=== PATIENT | female | born 1985 | race Caucasian/White ===

== ENCOUNTER 2020-03-28 13:39 | Observation (INO) | payer BC ==
[2020-03-28] MEDS ORDERED: RINGERS SOLUTION,LACTATED 1,000 ML IV ONE ×2 (14:11→17:49)
[2020-03-28 14:25] LABS: APPEARANCE,URINE CLEAR; BILIRUBIN,URINE NEGATIVE (NEGATIVE); COLOR,URINE YELLOW; GLUCOSE, URINE NEGATIVE (NEGATIVE); KETONES,URINE 20 mg/dL (NEGATIVE); LEUKOCYTE ESTERASE,URINE NEGATIVE (NEGATIVE); NITRITE,URINE NEGATIVE (NEGATIVE); PROTEIN,URINE NEGATIVE (NEGATIVE); URINE SPECIFIC GRAVITY 1.006; UROBILINOGEN,URINE NEGATIVE mg/dL (<2.0)
[2020-03-28 14:43] LABS: URINE AMPHETAMINES SCREEN NEGATIVE; URINE BARBITURATES SCREEN NEGATIVE; URINE BENZODIAZEPINES SCREEN NEGATIVE; URINE COCAINE SCREEN NEGATIVE; URINE MARIJUANA (THC) SCREEN NEGATIVE; URINE METHADONE SCREEN NEGATIVE; URINE PHENCYCLIDINE SCREEN NEGATIVE
[2020-03-28] MEDS ORDERED: TERBUTALINE SULFATE INJ/PF 1 MG/1 ML SDV SUBCUT ONE (14:53)
[2020-03-28 14:55] LABS: BACTERIA (WET MOUNT) 3+ BACTERIA SEEN; EPITHELIALS (WET MOUNT) 3+ EPITHELIALS SEEN; T.VAGINALIS (WET MOUNT) NO TRICHOMONAS SEEN; WBCS (WET MOUNT) 1+ WBCS SEEN; YEAST (WET MOUNT) NO YEAST SEEN
[2020-03-28] MEDS ORDERED: TERBUTALINE SULFATE INJ/PF 1 MG/1 ML SDV ONE (14:56)
--- NOTE | 2020-03-28 15:51 | RADIOLOGY REPORT (SQ) ---
EXAM DESCRIPTION: U/S OB LIMITED IMAGES COMPLETED DATE/TIME: 03/28/2020 2:57 pm REASON FOR STUDY: cervical length COMPARISON: None. TECHNIQUE: Limited transabdominal grayscale ultrasound for evaluation of specific requested obstetri joseph parameters. LIMITATIONS: None. FINDINGS: TWIN A: LVP: 5.4 x 9.2 cm. FHR: 128 beats per minute. PRESENTATION: Vertex. PLACENTA: Anterior. ANATOMY: Not assessed OTHER: No other findings. TWIN B: LVP: 4.4 x 4.6 cm. FHR: 141 beats per minute. PRESENTATION: Transverse. PLACENTA: Anterior ANATOMY: Not assessed OTHER: No other findings. CERVICAL LENGTH: 4.4 cm. IMPRESSION: LIMITED OBSTETRICAL ULTRASOUND WITH MEASURED PARAMETERS DELINEATED ABOVE. Trimester of : Third trimester - 28 weeks to delivery. TECHNICAL DOCUMENTATION: JOB ID: [id number] 2010 [employer]- All Rights Reserved Reading location - IP/workstation name: [email or web address]
[2020-03-28 16:20] LABS: CHLAM PCR NOT DETECTED (NOT DETECT)
[2020-03-28] MEDS ORDERED: NIFEDIPINE 10 MG CAPSULE PO ONE (17:19)
[2020-03-28] MEDS ORDERED: NIFEDIPINE 10 MG CAPSULE ONE ×4 (17:25→23:57)
[2020-03-28] MEDS ORDERED: RINGERS SOLUTION,LACTATED 1,000 ML IV PRN (17:49)
[2020-03-28] MEDS ORDERED: BETAMET ACET/BETAMET NA INJ 6 MG/1 ML IM ONE (17:52)
[2020-03-28] MEDS ORDERED: HYDROXYZINE PAMOATE 50 MG CAPSULE PO ONE (17:52)
[2020-03-28] MEDS ORDERED: HYDROXYZINE PAMOATE 50 MG CAPSULE ONE (18:07)
[2020-03-28] MEDS ORDERED: BETAMET ACET/BETAMET NA INJ 6 MG/1 ML ONE (18:09)
[2020-03-28] MEDS ORDERED: IBUPROFEN 800 MG TABLET ONE (18:44)
--- NOTE | 2020-03-28 19:05 | Admission Physical ---
Datetime Report Generated by CPN: 03/28/2020 19:05 CURRENT ADMISSION Chief Complaint: Uterine Contractions Indication for Induction: Not Applicable Admit Impression : , Intrauterine ; Intact Membranes; Observation/Evaluation Admit Plan: Admit to Unit; Observation/Evaluation ALLERGIES Medication Allergies: No Medication Allergies: aspirin (12/14/2013) Latex: No Latex Allergies OBSTETRICAL HISTORY EDC: 06/05/2020 00:00 : 6 Para: 5 PHYSICAL EXAM General: Normal HEENT: Normal Neurologic: Normal Thyroid: Deferred Heart: Normal Lungs: Normal Breast: Deferred Back: Normal Abdomen: Normal Genitourinary Exam: Normal Extremities: Normal DTRs: Normal Pelvic Type: Adequate Vital Signs: Reviewed VAGINAL EXAM Dilatation: 0 Effacement: 0 Station: ji FETUS A EGA: 30.1 Monitoring: External US FHR- Baseline: 140 Variability: Moderate 6-25bpm Accelerations: 15X15 Decelerations: None FHR Category: Category I Presentation: Transverse Admit Comment: 34yo ( x 3, C/S for twins) at 30+1ega presents for uterine ctx q 2 minutes. Terb given with little relief. LLOYD twin A polyhydramnios - patient is aware of this and has appt on with MFM to f/u on this. GDM - just started checking sugars. Reviewed concern that despite terb she is still having regular contractions that are palpating mild to moderate. She does not appear to be in labor but is having regular ctx - cervix closed and cervical length is 4.4cm. Procardia and vistaril loading given and will give procardia Q 4-6 hours to maintain quiet uterus. D/w Dr. oRdarte - will delay on BMZ since cvx closed - will give BMZ if needed for cervical change and will begin Mag Sulfate at that time if it should occur. For now will given Motrin 800mg po Q 8 hours for 48 hours per MFM. Admit and monitor overnight - observation. FETUS B Monitoring: External US Variability: Moderate 6-25bpm Accelerations: 15X15 Decelerations: None FHR Category: Category I Presentation: Transverse INFORMED CONSENT Informed Consent Obtained: Section Delivery; Risks, Benefits and Alternatives Discussed Signature: with User ID: [email or web address]
--- NOTE | 2020-03-28 20:46 | Non Stress Test Report ---
Non Stress Test Datetime Report Generated by CPN: 03/28/2020 20:45 DEMOGRAPHIC EGA NST: 30.1 VITAL SIGNS Temperature - NST: 98.5 Pulse - NST: 116 RESP - NST: 17 NBPSYS NST: 99 NBPDIA NST: 54 MONITORING Monitor Explained: Monitor Explained; Test Explained; Patient Verbalized Understanding Time on Monitor: 03/28/2020 19:40 Time off Monitor: 03/28/2020 20:24 NST Duration: 44 NST INTERVENTIONS NST Interventions: PO Hydration; Reposition Patient Physician Notified NST: DrMiguel Sudhakar BABY A: [id number] BABY A Movement : Present Contraction Frequency : irregular x2 with irritability FHR Baseline : 135 Accelerations : 15X15 Decelerations : None Variability : Moderate 6-25bpm NST Review: Meets Criteria for Reactive NST NST Review and Verified By : YASMANY Merino Results: Reactive BABY B Movement: Present FHR Baseline: 140 Accelerations: 15X15 Decelerations: None Variability: Moderate 6-25bpm NST Review: Meets Criteria for Reactive NST NST Reviewed And Verified By: J.Field, RN NST Results: Reactive NST REPORT Report Trigger: Send Report
[2020-03-28] MEDS: NIFEDIPINE 10 MG CAPSULE PO SCH (22:07)
[2020-03-29] MEDS: NIFEDIPINE 10 MG CAPSULE PO SCH ×2 (00:02→06:01)
[2020-03-29] MEDS ORDERED: IBUPROFEN 800 MG TABLET ONE ×2 (01:58→10:16)
[2020-03-29] MEDS: IBUPROFEN 800 MG TABLET PO SCH ×2 (02:00→10:21)
[2020-03-29] MEDS ORDERED: ASPIRIN 81 MG TABLET, ENT COATED PO SCH (10:00)
[2020-03-29] MEDS ORDERED: FERROUS SULFATE 325 MG TABLET PO SCH (10:00)
[2020-03-29] MEDS ORDERED: NIFEDIPINE 10 MG CAPSULE PO SCH (10:00)
[2020-03-29] MEDS ORDERED: NIFEDIPINE 10 MG CAPSULE ONE (10:16)
[2020-03-29] MEDS ORDERED: FERROUS SULFATE 325 MG TABLET PO ONE (10:16)
[2020-03-29] MEDS ORDERED: ASPIRIN 81 MG TABLET, CHEWABLE ONE (10:19)
[2020-03-29] MEDS ORDERED: FENTANYL CITRATE INJ/PF 100 MCG/2 ML AMPUL ONE (11:00)
[2020-03-29] MEDS ORDERED: EPHEDRINE SULFATE INJ 50 MG/1 ML AMPULE ONE (11:00)
[2020-03-29] MEDS ORDERED: FENTANYL/BUPIVACAINE/NS/PF 0 MCG/0 ML RTUINJ EPI ONE (11:00)
[2020-03-29] MEDS ORDERED: BUPIVACAINE HCL 0.25 % INJ/PF (2.5 MG/1 ML) 30 ML VIAL ONE (11:00)
--- NOTE | 2020-03-29 11:46 | PDOC DISCHARGE SUMMARY ---
Impression - Admit/DC Date/PCP Admission Date/Primary Care Provider: 03/28/20 17:47 Discharge Date: 03/29/20 - Discharge Diagnosis (1) Dichorionic diamniotic twin in third trimester Is this a current diagnosis for this admission?: Yes (2) Polyhydramnios in third trimester, antepartum complication Is this a current diagnosis for this admission?: Yes (3) uterine contractions in third trimester, antepartum Is this a current diagnosis for this admission?: Yes (4) Surrogate in third trimester Is this a current diagnosis for this admission?: Yes - Assessment Summary: patient is patient is a 34-year-old G5, P4 is at 30 weeks and 2 days is admitted yesterday for observation secondary to contractions although patient cervical length was reassuring at greater than 4 cm. Contractions have resolved now she experiences an occasional 1-2 irritable pattern. She has been placed on Procardia and high-dose Motrin with good relief of the contraction patterns. She was not given an in corticosteroids with this admission per recommendations from [facility] when Dr. Carlos called them about this patient yesterday. - Additional Information Resuscitation Status: Full Code Discharge Diet: As Tolerated Discharge Activity: Balance Activity w/Rest, Pelvic Rest Prescriptions: Ibuprofen [Motrin 800 mg Tablet] 800 mg PO Q8A 1 Days #7 tablet Nifedipine [Procardia 10 mg Capsule] 10 mg PO Q4 PRN #30 capsule PRN Reason: Abdominal Cramping Home Medications: Aspirin [Aspir-Low] 81 mg PO DAILY 03/28/20 Ferrous Sulfate [Feosol 325 mg Tablet] 325 mg PO DAILY 03/28/20 Vitamin [-U Multiple Vitamin Capsule] 1 cap PO DAILY 03/28/20 Ibuprofen [Motrin 800 mg Tablet] 800 mg PO Q8A 1 Days #7 tablet 03/29/20 Nifedipine [Procardia 10 mg Capsule] 10 mg PO Q4 PRN #30 capsule 03/29/20 History of Present Illiness History of Present Illness: SENA KONG is a 34 year old female Physical Exam - Physical Exam Vital Signs: Intake & Output 03/28/20 03/29/20 03/30/20 06:59 06:59 06:59 Weight 101.5 kg Results Laboratory Results: POC Glucose 99 mg/dL (70-110) 03/28/20 17:16 Urine Color YELLOW 03/28/20 13:48 Urine Appearance CLEAR 03/28/20 13:48 Urine pH 7.0 (5.0-9.0) 03/28/20 13:48 Ur Specific [place] 1.006 03/28/20 13:48 Urine Protein NEGATIVE mg/dL (NEGATIVE) 03/28/20 13:48 Urine Glucose (UA) NEGATIVE mg/dL (NEGATIVE) 03/28/20 13:48 Urine Ketones 20 mg/dL (NEGATIVE) H 03/28/20 13:48 Urine Blood NEGATIVE (NEGATIVE) 03/28/20 13:48 Urine Nitrite NEGATIVE (NEGATIVE) 03/28/20 13:48 Urine Bilirubin NEGATIVE (NEGATIVE) 03/28/20 13:48 Urine Urobilinogen NEGATIVE mg/dL (<2.0) 03/28/20 13:48 Ur Leukocyte Esterase NEGATIVE (NEGATIVE) 03/28/20 13:48 Urine WBC (Auto) 1 /HPF 03/28/20 13:48 Urine RBC (Auto) 0 /HPF 03/28/20 13:48 Squamous Epi Cells Auto 4 /HPF 03/28/20 13:48 Urine Mucus (Auto) RARE /LPF 03/28/20 13:48 Urine Ascorbic Acid NEGATIVE (NEGATIVE) 03/28/20 13:48 Epi Cells (Wet Prep) 3+ EPITHELIALS SEEN 03/28/20 14:25 Bacteria (Wet Prep) 3+ BACTERIA SEEN 03/28/20 14:25 Trichomonas (Wet Prep) NO TRICHOMONAS SEEN 03/28/20 14:25 Vaginal WBC 1+ WBCS SEEN 03/28/20 14:25 Vaginal Yeast NO YEAST SEEN 03/28/20 14:25 Urine Opiates Screen NEGATIVE 03/28/20 13:48 Urine Methadone Screen NEGATIVE 03/28/20 13:48 Ur Barbiturates Screen NEGATIVE 03/28/20 13:48 Ur Phencyclidine Scrn NEGATIVE 03/28/20 13:48 Ur Amphetamines Screen NEGATIVE 03/28/20 13:48 U Benzodiazepines Scrn NEGATIVE 03/28/20 13:48 Urine Cocaine Screen NEGATIVE 03/28/20 13:48 U Marijuana (THC) Screen NEGATIVE 03/28/20 13:48 Chlamydia DNA (PCR) NOT DETECTED (NOT DETECT) 03/28/20 14:25 N.gonorrhoeae DNA (PCR) NOT DETECTED (NOT DETECT) 03/28/20 14:25 Impressions: Obstetrics Ultrasound 03/28/20 14:10 IMPRESSION: LIMITED OBSTETRICAL ULTRASOUND WITH MEASURED PARAMETERS DELINEATED ABOVE. Trimester of : Third trimester - 28 weeks to delivery. Stroke Is this a Stroke Patient?: No Acute Heart Failure - Is this a Heart Failure Patient?: No
== END 2020-03-29 12:43 | disposition home or self-care (01) ==
LOC: LC 13:39 → LR 17:47
PROVIDERS: ADMIT Student in an Organized Health Care Education/Training Program; ATTEND Student in an Organized Health Care Education/Training Program
DX: O47.03 False labor before 37 completed weeks of gestation, third trimester (principal); O40.3XX1 Polyhydramnios, third trimester, fetus 1; O30.043 Twin pregnancy, dichorionic/diamniotic, third trimester; O24.419 Gestational diabetes mellitus in pregnancy, unspecified control; Z3A.30 30 weeks gestation of pregnancy; Z33.3 Pregnant state, gestational carrier
CPT/HCPCS: 59025; 87210; 82962; 87077; 81001; 87081; 80307; 87491; 87591; 76815; G0378 ×2; J3490 ×2; J0702; J3105; J3010

== ENCOUNTER 2020-03-29 21:01 | Outpatient (CLI) | payer BC ==
[2020-03-29] MEDS ORDERED: MAGNESIUM SULFATE 20 GM/500 ML RTUINJ IV ONE (21:15)
[2020-03-29] MEDS ORDERED: BETAMET ACET/BETAMET NA INJ 6 MG/1 ML ONE ×2 (21:15→21:22)
[2020-03-29] MEDS ORDERED: MAGNESIUM SULFATE 4 GM/100 ML RTUPB IV ONE ×2 (21:15→21:16)
[2020-03-29] MEDS ORDERED: MAGNESIUM SULFATE 20 GM/500 ML RTUINJ IV PRN (21:16)
[2020-03-29] MEDS ORDERED: RINGERS SOLUTION,LACTATED 1,000 ML IV PRN (21:20)
[2020-03-29] MEDS ORDERED: PENICILLIN G POTASSIUM 5,000,000 UNIT in DEXTROSE 5%-WATER 100 ML IV ONE (21:51)
[2020-03-29] MEDS ORDERED: PENICILLIN G-K 5 MILLION UNIT VIAL ONE (21:52)
--- NOTE | 2020-03-29 22:00 | PDOC TRANSFER SUMMARY ---
General Admission Date/PCP: 03/29/20 21:25 Admission Date: 03/29/20 Transfer Date: 03/29/20 Accepting Facility: [facility] Resuscitation Status: Full Code - Transfer Diagnosis (1) Vaginal bleeding during Is this a current diagnosis for this admission?: Yes (2) Dichorionic diamniotic twin in third trimester Is this a current diagnosis for this admission?: Yes (3) Polyhydramnios in third trimester, antepartum complication Is this a current diagnosis for this admission?: Yes (4) uterine contractions in third trimester, antepartum Is this a current diagnosis for this admission?: Yes (5) Surrogate in third trimester Is this a current diagnosis for this admission?: Yes - Transfer Medications Home Medications: Aspirin [Aspir-Low] 81 mg PO DAILY 03/28/20 Ferrous Sulfate [Feosol 325 mg Tablet] 325 mg PO DAILY 03/28/20 Vitamin [-U Multiple Vitamin Capsule] 1 cap PO DAILY 03/28/20 Transfer Medications: Current Medications Magnesium Sulfate (Magnesium Sulfate Rtu 4 Gm/100 Ml Premix Bag) 4 gm in 100 mls @ 300 mls/hr IV NOW ONE Stop: 03/29/20 21:35 Magnesium Sulfate (Magnesium Sulfate Rtu 20 Gm/500 Ml Premix) 20 gm in 500 mls @ 0 mls/hr IV CONTINUOUS PRN PRN Reason: THIS MED IS NOT "PRN" Stop: 04/28/20 21:15 Lactated Ringer's (Lactated Ringers 1000 Ml Iv Soln) 1,000 mls @ 125 mls/hr IV CONTINUOUS PRN PRN Reason: THIS MED IS NOT "PRN" Stop: 04/28/20 21:19 - Allergies Allergies/Adverse Reactions: No Known Allergies Allergy (Unverified 03/29/20 11:19) Hospital Course Hospital Course: 34 you @ 30 12/25 with di/di twin gestation in a surrogate who had been admitted last evening for 23 hour obs secondary to abdominal pain and contractions that were noted on toco. With that admission her cervical length was measured via sono and it was >4 cm. She was given terbutaline, and with consultation from her M she was given Motrin 800 mg q 8 hours x 48 hours and Procardia 10 mg q 4 hours x 24 hours then to take prn. This evening she presented with complaints of vaginal bleeding. This presentation she denies any contractions or pain. She has evidence of significant episode of bleeding with bright red blood soaked through her clothing and consuming most of a peripad. At this time the bleeding does seem to have slowed considerably and the patient is comfortable again indicating that she is without pain. Actiprom was sent for suspicion of ROM and it did return as positive. We have initiated ACS protocol with Betamethasone 12 mg IM now and has started Magnesium Sulfate 4 gram bolus then 2 grams/hour. She has also had Pen G started for latency and GBS prophylaxis. Physical Exam General appearance: PRESENT: no acute distress, cooperative, well-nourished Head exam: PRESENT: atraumatic Eye exam: PRESENT: conjunctival injection GI/Abdominal exam: PRESENT: soft - gravid abdomen Results Laboratory Results: actiprom positive Plan Discharge Plan: Dr. Philip at [facility] has accepted the transfer of this pleasant patient (thank you for your assistance). She will be transported by air due to the concerning amount of bloody fluid. Bedside ultra sound here by me show baby A is vertex and baby B is transvers maternal left back up at this time. Time Spent: Greater than 30 Minutes
[2020-03-29] MEDS ORDERED: ERYTHROMYCIN INJ 500 MG VIAL IV ONE ×2 (22:18→22:21)
--- NOTE | 2020-03-29 22:59 | RADIOLOGY REPORT (SQ) ---
EXAM DESCRIPTION: Limited OB ultrasound CLINICAL HISTORY: 34 years Female; Cervical length to r/o labor TECHNIQUE: Transabdominal obstetrical ultrasound was performed. COMPARISON: Limited OB ultrasound 03/28/2020 FINDINGS: Only two images were obtained. This demonstrates the cervix which appears to be closed and measures 3.9 cm. There is a presenting fetus in cephalic presentation. IMPRESSION: The cervix measures 3.9 cm and appears closed.
== END 2020-03-29 23:00 | disposition home or self-care (01) ==
LOC: LC 21:01 → LR 21:25 → UNDOADMIN 21:25 → LC 23:00 → UNDODISIN 23:00
PROVIDERS: ATTEND Obstetrics & Gynecology
DX: O46.93 Antepartum hemorrhage, unspecified, third trimester (principal); O42.913 Preterm premature rupture of membranes, unspecified as to length of time between rupture and onset of labor, third trimester; O30.043 Twin pregnancy, dichorionic/diamniotic, third trimester; O40.3XX0 Polyhydramnios, third trimester, not applicable or unspecified; Z87.891 Personal history of nicotine dependence; Z3A.30 30 weeks gestation of pregnancy
CPT/HCPCS: 59899; 96372; 84112; 76815; J3475 ×2; J2540; J0702; J1364

== ENCOUNTER → 2020-11-17 | Outpatient (CLI) | payer OTHER ==
--- NOTE | 2020-11-17 15:14 | RADIOLOGY REPORT (SQ) ---
EXAM DESCRIPTION: CT ABDOMEN WITH IV ORAL CONT IMAGES COMPLETED DATE/TIME: 11/17/2020 1:25 pm REASON FOR STUDY: (R10.30)LOWER ABDOMINAL PAIN, UNSPECIFIED R10.30 LOWER ABDOMINAL PAIN, UNSPECIFIE D COMPARISON: None. TECHNIQUE: CT scan of the abdomen and pelvis performed with intravenous and oral contrast using timmy joseph scanning technique with dynamic intravenous contrast injection. Images reviewed with lung, soft t issue, and bone windows. Reconstructed coronal and sagittal MPR images reviewed. Delayed images for e valuation of the urinary system also acquired. All images stored on PACS. All CT scanners at this facility use dose modulation, iterative reconstruction, and/or weight based d osing when appropriate to reduce radiation dose to as low as reasonably achievable (ALARA). [facility]: Dose Right [facility]: CareDose [facility]: Dose Right [facility]: Teradose 4D [facility]: Yamsafer CONTRAST TYPE AND DOSE: contrast/concentration: Isovue 350.00 mmol/ml; Total Contrast Delivered: 100 .0 ml; Total Saline Delivered: 72.0 ml RENAL FUNCTION: None required. The patient is less than 50 years old. RADIATION DOSE: CT Rad equipment meets quality standard of care and radiation dose reduction techniq ues were employed. CTDIvol: 10.7 - 10.9 mGy. DLP: 1188 mGy-cm. . LIMITATIONS: None. FINDINGS: LOWER CHEST: No significant findings. No nodules or infiltrates. LIVER: Normal size. No masses. No dilated ducts. SPLEEN: Normal size. No focal lesions. PANCREAS: No masses. No significant calcifications. No adjacent inflammation or peripancreatic fluid collections. Pancreatic duct not dilated. GALLBLADDER: No identified stones by CT criteria. No inflammatory changes to suggest cholecystitis. ADRENAL GLANDS: No significant masses or asymmetry. RIGHT KIDNEY AND URETER: No solid masses. No significant calcifications. No hydronephrosis or hyd roureter. LEFT KIDNEY AND URETER: No solid masses. No significant calcifications. No hydronephrosis or hydr oureter. AORTA AND VESSELS: No aneurysm. No dissection. Renal arteries, SMA, celiac without stenosis. RETROPERITONEUM: No retroperitoneal adenopathy, hemorrhage or masses. BOWEL AND PERITONEAL CAVITY: No obstruction. No visualized masses. No free fluid. No inflammatory ch anges or thickening of bowel wall. APPENDIX: Normal. PELVIS: Tubal ligation clips. No significant masses. Normal bladder. No free fluid. ABDOMINAL WALL: Small fat containing umbilical hernia. BONES: No significant or acute findings. OTHER: No other significant finding. IMPRESSION: No acute findings. No explanation for pain. TECHNICAL DOCUMENTATION: JOB ID: [id number] Quality ID # [id number]: Final reports with documentation of one or more dose reduction techniques (e.g., Au tomated exposure control, adjustment of the mA and/or kV according to patient size, use of iterative reconstruction technique) 2010 [employer]- All Rights Reserved Reading location - IP/workstation name: [email or web address]
== END ==
LOC: RAD 10:05
PROVIDERS: ATTEND Physician Assistant
DX: R10.30 Lower abdominal pain, unspecified (principal)
CPT/HCPCS: 74160